=== PATIENT | male | born 1930 | race Caucasian/White ===

== ENCOUNTER 2017-03-09 11:58 | Emergency (ER) | payer MEDICARE ==
[~2017-03-09] VITALS: Ht 182.9 cm; Wt 97.3 kg
[~2017-03-09 11:58] MED LIST: ACET1TAB42 PO; ACET325T51 PO; ASCO-294 PO; ASPI-973 PO; ATEN25TA PO; BIMA2.5D5 BOTH_EYES; CHOL100043 PO; CRAN300T PO; CYAN500L4 PO; FUR20 PO; GLIM1TAB PO; KRIL1CAP2 PO; MAGN400C PO; MULT-321 PO; NYST1POW23 TOP; SIMV10TA4 PO
[2017-03-09 12:06] VITALS: BP 132/86; PULSE 72; RESP 18
--- NOTE | 2017-03-09 12:39 | ED.REPORT ---
HPI-Trauma Minor / Fall Date of Service Mar 09, 2017 ED Provider: Erich David PA-C Marc is a 78-year-old male with a history of dementia and a recent left hip replacement is brought in by EMS for evaluation following a ground-level fall. Patient is unable to provide details of the fall, only that he struck his head and elbows. EMS states that he fell while getting out of his wheelchair. The patient does not believe the fall was witnessed. However he is unsure whether he or someone else called EMS. Patient takes aspirin but denies blood thinners. Denies headache, pain. Subsequent dictation with the patient's daughter reveals easily resonant [place] and memory care unit. She states that he was shown to the restroom, where she left him. They heard a thump and returned to find him on the floor. EMS was engaged. He has appointment to see his primary care provider Dr. Lea next Monday. She states that he normally takes aspirin. Denies use of blood thinners. Nursing Notes Stated Complaint: GL FALL Chief Complaint: Multiple Trauma/Fall Nursing Notes Reviewed: Yes Allergies: Coded Allergies: Sulfa (Sulfonamide Antibiotics) (Verified Allergy, Intermediate, wiped him out, "disoriented", 05/16/16) levofloxacin (Verified Allergy, Intermediate, Rash, diaphoresis, 05/16/16) Beta-Blockers (Beta-Adrenergic Bloc (Verified Allergy, Unknown, unknown, ) Scheduled Ascorbate Calcium (Vitamin C) 500 Mg Tablet 500 MG PO DAILY Aspirin (Aspirin) 81 Mg Tablet 81 MG PO DAILY Atenolol (Atenolol) 25 Mg Tablet 25 MG PO evening Bimatoprost (Lumigan) 45 Drop/2.5 Ml Ophsoln 1 DROP BOTH_EYES HS Cholecalciferol (Vitamin D3) (Vitamin D) 1,000 Unit Tablet 1,000 UNIT PO DAILY Cranberry Extract (Cranberry) 300 Mg Tablet 300 MG PO BID Cyanocobalamin (Vitamin B-12) (Vitamin B-12) 500 Mcg Lozenge 500 MCG PO DAILY Furosemide (Furosemide) 20 Mg Tab 20 MG PO DAILY Glimepiride (Glimepiride) 1 Mg Tablet 1 MG PO DAILYAC Krill Oil/Drumore-3/Dha/Epa (Drumore-3 Krill Oil Softgel) 1 Each Capsule 1 EACH PO DAILY Magnesium Oxide (Magnesium) 400 Mg Capsule 400 MG PO DAILY Multivit with Calcium,Iron,Min (Maximum Daily Multivitamin) 1 Each Tablet 1 EACH PO DAILY Simvastatin (Simvastatin) 10 Mg Tablet 10 MG PO HS Scheduled PRN Acetaminophen (Acetaminophen) 325 Mg Tablet 650 MG PO Q4H PRN PRN For Pain Acetaminophen/Codeine 300-30mg (Acetaminophen/Codeine 300-30mg) 1 Each Tablet 2 TABLET PO Q6H PRN PRN Pain Nystatin (Nystatin) 1 Each Powder.ea. 1 EACH TOP PRN . General Time Seen by MD: 12:23 Chief Complaint Fall Past Medical History Past Medical History Notes: PCP- Dr. 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 Altered Mental Status, mild, acute 2. Chronic Kidney Disease stage 3 3. Hyperkalemia 4. Chronic Atrial Fibrillation s/p pacemaker, not on Coumadin d/t fall last year 5. Diabetes Mellitus type 2, Insulin-dependent Reports: Hyperlipidemia, Hypertension Past Surgical History Reports: Appendectomy Reports: Hip replacement, Pacemaker insertion Family History No significant family history, per patient Smoking History Former Smoker Social History Alcohol Use: "Social" Drug Use: Denies drug use Other Social History: Good social support, Local resident Ambulatory Status Wheelchair Review of Systems Unable to Obtain ROS Mental status Physical Exam General: Well appearing, well developed, well nourished, no acute distress. Head: 2 cm hematoma on the occipital scalp, normocephalic. Eyes: No scleral icterus or injection. No discharge. Vision grossly intact. ENT: Voice clear, hearing grossly intact. Neck: Nontender, full range of motion Respiratory: Regular rate and rhythm. Breath sounds present, clear to auscultation and equal bilaterally. No respiratory distress. No increased work of breathing, speaks in complete sentences. Cardiovascular: Regular rate and rhythm, without murmur, gallop or rub. No pedal edema. Skin: Warm and dry. Small avulsions on bilateral elbows. Neurological: Grossly nonfocal. Cranial nerves: Vision grossly intact, PERRL, EOMI. Facial motion symmetrical, sensation to light touch over forehead, maxilla and mandible present and equal B /L. Voice clear and fluent, no drooling/pooling of saliva, uvula rises midline. Psychological: Alert and oriented. Speech appropriate, linear and logical. Behavior appropriate. Initial Vital Signs Vital Signs (First) Date Time Temp Pulse Resp B/P Pulse Ox O2 Delivery O2 Flow Rate FiO2 03/09/17 12:06 36.4 72 18 132/86 Room Air 03/09/17 15:58 96 Initial VS: Vital signs normal Interpretation & Diagnostics Lab Results Interpretation Result Diagram: 03/09/17 1255 03/09/17 1255 Test 03/09/17 12:45 03/09/17 12:55 03/09/17 15:28 Hold Boyd Top Tube Received (Received) White Blood Count 6.5th/mm3 (3.8-10.1) Red Blood Count 3.28mil/mm3 (4.40-5.80) Hemoglobin 10.2g/dL (13.8-17.2) Hematocrit 32.2% (41.0-50.0) Mean Corpuscular Volume 98.2fL (81-100) Mean Corpuscular Hemoglobin 31.1pg (27.0-35.0) Mean Corpuscular Hemoglobin Concent 31.7% (32.0-37.0) Red Cell Distribution Width 13.1% (12.3-15.4) Platelet Count 211bil/L (150-400) Neutrophils (%) (Auto) 72.6% (40-74) Lymphocytes (%) (Auto) 11.8% (14-46) Monocytes (%) (Auto) 12.6% (4-12) Eosinophils (%) (Auto) 2.6% (0-5) Basophils (%) (Auto) 0.2% (0-3) Sodium Level 139mEq/L (134-144) Potassium Level 5.0mEq/L (3.5-5.2) Chloride Level 105mEq/L (97-108) Carbon Dioxide Level 24mmol/L (18-29) Blood Urea Nitrogen 35mg/dL (8-27) Creatinine 1.73mg/dL (0.76-1.27) Estimat Glomerular Filtration Rate 40mL/min (>59) Glucose Level 106mg/dL (60-99) Calcium Level 9.4mg/dL (8.5-10.1) Total Bilirubin 0.9mg/dL (0.0-1.2) Aspartate Amino Transf (AST/SGOT) 94U/L (0-50) Alanine Aminotransferase (ALT/SGPT) 117U/L (0-44) Alkaline Phosphatase 250U/L (25-160) Total Protein 6.6g/dL (6.4-8.4) Albumin 2.8g/dL (3.4-5.0) Urine Color Yellow (YELLOW) Urine Appearance Clear (CLEAR,HAZY) Urine pH 6.5 (5.0-8.0) Urine Specific [place] 1.020 (1.003-1.035) Urine Protein 100mg/dL (NEG,TRACE) Urine Glucose (UA) Negativemg/dL (NEGATIVE) Urine Ketones Negativemg/dL (NEGATIVE) Urine Occult Blood Negative (NEGATIVE) Urine Nitrite Negative (NEGATIVE) Urine Bilirubin Negative (NEGATIVE) Urine Urobilinogen Normalmg/dL (NORMAL) Urine Leukocyte Esterase Negative (NEGATIVE) Urine RBC 0-2/hpf (0-2) Urine WBC 0-5/hpf (0-5) Urine Epithelial Cells Occasional/hpf (NONE-MOD) Urine Crystals None seen (NONE SEEN) Urine Bacteria None/hpf (NONE-FEW) Urine Hyaline Casts None/lpf (NONE) Urine Granular Casts None seen (NONE SEEN) Urine Waxy Casts None seen (NONE SEEN) Urine Red Blood Cell Casts None seen (NONE SEEN) Urine White Blood Cell Casts None seen (NONE SEEN) Urine Mucus None seen (None Seen) Urine Trichomonas None seen (NONE SEEN) Urine Yeast None (NONE SEEN) Urine Culture Reflexed Not indicated ECG Interpretation ECG Interpretation: Ventricularly paced at 80 bpm. Other complexes is also detected. Interpreted by: ED physician CT Head Interpretation PROCEDURE: CT BRAIN WITHOUT CONTRAST ([id number]) INDICATIONS: ground level fall IMPRESSION: 1. No acute intracranial abnormality. 2. 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 3. Moderate cerebral volume loss and chronic white matter small vessel ischemic changes. Interpretation / Wet Read by: Interpret - Radiologist CT C-Spine Interpretation PROCEDURE: CT CERVICAL SPINE WITHOUT CONTRAST ([id number]) INDICATIONS: ground level fall IMPRESSION: 1. No fracture or subluxation. 2. Multilevel degenerative changes redemonstrated throughout the cervical spine as described. Interpretation / Wet Read by: Interpret - Radiologist Procedures Laceration Management Consent / Setup / Site Prep: Consent from hide curer, Hand hygiene observed Location of Wound: Right elbow shallow avulsion. Wound Length: 2 cm Wound Preparation: Normal saline Debridement: None Irrigation: 100 cc Foreign Body Explore / Removal: Explored for foreign body Repair Skin: Dermabond Post-Procedure / Complications: Dressing applied, No complications, Condition improved, Tolerated procedure well, Patient stable Procedure Performed by: Allied health pract Consent / Setup / Site Prep: Consent from hide curer, Hand hygiene observed Location of Wound: Left elbow shallow avulsion Wound Length: 2 cm Wound Preparation: Normal saline Debridement: None Irrigation: 100 cc Repair Skin: Dermabond Post-Procedure / Complications: Dressing applied, No complications, Condition improved, Tolerated procedure well, Patient stable Re-Eval/Medical Decision Med Decision/Clinical Course 78-year-old male with history of dementia and left hip replacement presents for evaluation following a ground-level fall. He is unable to provide a reliable review of systems. Evidence of hematoma on his occipital scalp, neurological examination is normal, no spine tenderness. Small, shallow avulsion lacerations on bilateral elbows. Patient's daughter states he is up-to-date on his tetanus. CT of the head and neck is reassuring. CBC and CMP are near baseline with the exception of mildly elevated liver enzymes. I believe this is an incidental finding. Urinalysis is normal Washed elbow lacerations with normal saline and closed with Dermabond. Dressed with gauze. Provided wound care instructions and emergency return precautions. The patient is stable and safe to be discharged to his assisted living facility. Daughter verbalizes understanding and agreement to the plan. Discussed this case with Dr. Cabrera Discharge & Departure Impression: Primary Impression: Head contusion Encounter type: initial encounter Contusion of head detail: scalp Qualified Code: S00.03XA - Contusion of scalp, initial encounter Additional Impressions: Elevated liver enzymes Lacerations of multiple sites without complication Disposition: Home Discharge Condition All VS Reviewed: Yes Condition: Stable Additional Instructions: Evaluation in the emergency department following a ground-level fall. CT scans are reassuring against a serious head or neck injury. Labs and EKG are reassuring that this fall was not caused by a cardiac event. Blood tests appear to be near his normal with the exception of slightly elevated liver enzymes. I do not believe this contributed to his fall but this should be monitored by his primary care provider. We cleaned the lacerations on his elbows and closed with skin glue. We applied gauze dressings. These should be left on and dry for about 24 hours. After that they can be changed and wash gently with soap and water. Do not use antibiotic ointment. I would expect the overlying skin to peel off eventually. Be vigilant for signs of infection including increasing redness, swelling, pain with the appearance of pus. This should be monitored by the staff at his living facility. At the time of departure we do not have results from urinalysis. We will inform you of these results when they are available. Return to emergency department for any new or worsening symptoms including signs of infection, fever, new headache, vomiting, seizure. Referrals: Mireya Lea MD (PCP) EDSupervising Provider for APC: Shan Cabrera MD copies to: Mireya Lea MD, Seth PA-C Mar 09, 2017 12:39
[2017-03-09 13:07] LABS: BASOPHILS % (AUTO) 0.2 % (0-3); EOSINOPHILS % (AUTO) 2.6 % (0-5); MONOCYTES % (AUTO) 12.6 % (4-12); Mean Corpuscular Hemoglobin 31.1 pg (27.0-35.0); Mean Corpuscular Volume 98.2 fL (81-100); NEUTROPHILS % (AUTO) 72.6 % (40-74); Platelet Count 211 bil/L (150-400)
--- NOTE | 2017-03-09 14:22 | DRSVH ---
PROCEDURE: CT BRAIN WITHOUT CONTRAST ([id number]) INDICATIONS: ground level fall TECHNIQUE: Noncontrast 4.5 mm thick angled axial sections acquired from the foramen magnum to the vertex, with c oronal reformats. COMPARISON: [facility], CT, CT BRAIN WO CON, 01/10/2016, 9:26. FINDINGS: Image quality: Excellent. CSF spaces: Basal cisterns are patent. No extra-axial fluid collections. There is moderate cerebra l volume loss, with resultant ventricular and sulcal prominence. Brain: No intracranial hemorrhage, mass, or mass effect. There are subcortical, periventricular and deep white matter hypodensities consistent with moderate chronic small vessel ischemic changes. The re is encephalomalacia redemonstrated in the right occipital lobe and right cerebellar hemisphere con sistent with old infarcts. There is intracranial internal carotid artery atherosclerosis. Skull and face: Calvarium and visualized facial bones appear intact, without suspicious lesions. Sinuses: Visualized sinuses and mastoids are clear. IMPRESSION: 1. No acute intracranial abnormality. 2. Encephalomalacia redemonstrated within the right occipital lobe and cerebellar hemisphere consist ent with prior infarcts. 3. Moderate cerebral volume loss and chronic white matter small vessel ischemic changes. Dictated by: Toni Cisse M.D. on 03/09/2017 at 14:14 Approved by: Toni Cisse M.D. on 03/09/2017 at 14:20
--- NOTE | 2017-03-09 14:27 | DRSVH ---
PROCEDURE: CT CERVICAL SPINE WITHOUT CONTRAST ([id number]) INDICATIONS: ground level fall TECHNIQUE: Noncontrast 3 mm thick sections acquired from the skull base to the T4 level. Sagittal and coronal r eformats were then constructed. For radiation dose reduction, the following was used: automated exp osure control, adjustment of mA and/or kV according to patient size. COMPARISON: [facility], CT, C-SPINE W/O CONTRAST, 03/28/2013, 16:29. FINDINGS: Image quality: Excellent. Bones: No fractures or dislocations. There is straightening of the cervical lordosis. Bridging ant erior osteophytes are demonstrated at C3-C4. There is multilevel disc space narrowing throughout the cervical spine most prominent at C6-C7 with multilevel osteophytosis and mild endplate sclerosis als o noted. There is also mild uncovertebral joint arthropathy in the mid and lower cervical spine. Th ere are moderate degenerative changes at the atlantoaxial joint. Visualized superior ribs are intact . Soft tissues: Prevertebral soft tissues are normal in thickness. No paravertebral hematomas. No ap ical pneumothoraces. IMPRESSION: 1. No fracture or subluxation. 2. Multilevel degenerative changes redemonstrated throughout the cervical spine as described. Dictated by: Toni Cisse M.D. on 03/09/2017 at 14:20 Approved by: Toni Cisse M.D. on 03/09/2017 at 14:25
[2017-03-09 15:47] LABS: COLOR,URINE YELLOW (YELLOW)
[2017-03-09 15:48] LABS: APPEARANCE,URINE CLEAR (CLEAR,HAZY); OCCULT BLOOD,URINE NEGATIVE (NEGATIVE); PH,URINE 6.5 (5.0-8.0); UROBILINOGEN,URINE NORMAL (NORMAL)
[2017-03-09 15:58] VITALS: BP 128/80; PULSE 70; RESP 16; O2SAT 96
== END 2017-03-09 15:59 | disposition home or self-care (01) ==
LOC: SED 11:58
DX: S51.011A Laceration without foreign body of right elbow, initial encounter (principal); S51.012A Laceration without foreign body of left elbow, initial encounter; S00.03XA Contusion of scalp, initial encounter; W05.0XXA Fall from non-moving wheelchair, initial encounter; Y93.89 Activity, other specified; Y92.121 Bathroom in nursing home as the place of occurrence of the external cause; Y99.8 Other external cause status; R74.8 Abnormal levels of other serum enzymes; I13.10 Hypertensive heart and chronic kidney disease without heart failure, with stage 1 through stage 4 chronic kidney disease, or unspecified chronic kidney disease; E11.22 Type 2 diabetes mellitus with diabetic chronic kidney disease; N18.3 Chronic kidney disease, stage 3 (moderate); F03.90 Unspecified dementia, unspecified severity, without behavioral disturbance, psychotic disturbance, mood disturbance, and anxiety; Z95.0 Presence of cardiac pacemaker; Z79.82 Long term (current) use of aspirin; Z87.891 Personal history of nicotine dependence; Z88.1 Allergy status to other antibiotic agents; Z88.2 Allergy status to sulfonamides; Z88.8 Allergy status to other drugs, medicaments and biological substances; Z96.642 Presence of left artificial hip joint; Z79.4 Long term (current) use of insulin